=== PATIENT | male | born 1970 | race Caucasian/White ===

== ENCOUNTER 2016-07-07 14:37 | Inpatient (IN) | payer OTHER ==
[2016-07-07 17:02] VITALS: BMI 24.2
--- NOTE | 2016-07-07 19:13 | HP ---
COWS - Scale Resting Pulse: 1= [place] 81-100 Sweatin= Chills/Flushing Restless Observation: 0= Sits Still Pupil Size: 1= Pupils >than Normal Bone or Joint Aches: 1= Mild Discomfort Runny Nose/ Eye Tearin= Nasal Congestion GI Upset > 30mins: 1= Stomach Cramp Tremor Observation: 2= Slight Tremor Visible Yawning Observation: 1= 1-2x During Session Anxiety or Irritability: 2=Irritable/Anxious Goose Flesh Skin: 3=Piloerection COWS Score: 14 Admission ROS S - HPI Chief Complaint: WITHDRAWAL SX Allergies/Adverse Reactions: Allergies Allergy/AdvReac Type Severity Reaction Status Date / Time No Known Allergies Allergy Verified 07/07/16 17:24 History of Present Illness: 46 YEARS OLD MALE WITH LONG HISTORY OF HEROIN NICOTINE DEPENDENCE DENIES MEDICAL ISSUE DENIES MENTAL ILLNESS IS ADMITTED TO DETOX Exam Limitations: No Limitations - Ebola screening Have you traveled outside of the country in the last 21 days: No Have you had contact with anyone from an Ebola affected area: No Have you been sick,other than usual withdrawal symptoms: No Do you have a fever: No - Review of Systems Constitutional: Chills, Changes in sleep, Weight Stable EENT: reports: No Symptoms Reported Respiratory: reports: No Symptoms reported Cardiac: reports: No Symptoms Reported GI: reports: Nausea, Abdominal cramping : reports: No Symptoms Reported Musculoskeletal: reports: Back Pain Integumentary: reports: No Symptoms Reported Neuro: reports: Tremors Endocrine: reports: No Symptoms Reported Hematology: reports: No Symptoms Reported Psychiatric: reports: Judgement Intact, Orientated x3, Depressed (HISTORY OF DEPRESSION X 10 YEARS AGO) Other Systems: Reviewed and Negative Patient History - Patient Medical History Hx Anemia: No Hx Asthma: No Hx Chronic Obstructive Pulmonary Disease (COPD): No Hx Cancer: No Hx Cardiac Disorders: No Hx Congestive Heart Failure: No Hx Hypertension: No Hx Hypercholesterolemia: No Hx Pacemaker: No HX Cerebrovascular Accident: No Hx Seizures: No Hx Dementia: No Hx Diabetes: No Hx Gastrointestinal Disorders: No Hx Liver Disease: No Hx Genitourinary Disorders: No Hx Sexually Transmitted Disorders: No Hx Renal Disease (ESRD): No Hx Thyroid Disease: No Hx Human Immunodeficiency Virus (HIV): No Hx Hepatitis C: No Hx Depression: Yes (10 YEARS AGO) Hx Suicide Attempt: Yes (CUT WRISTS 10 YEARS AGO) Hx Bipolar Disorder: No Hx Schizophrenia: No - Patient Surgical History Past Surgical History: No Hx Neurologic Surgery: No Hx Cataract Extraction: No Hx Cardiac Surgery: No Hx Lung Surgery: No Hx Breast Surgery: No Hx Breast Biopsy: No Hx Abdominal Surgery: No Hx Appendectomy: No Hx Cholecystectomy: No Hx Genitourinary Surgery: No Hx Orthopedic Surgery: No - PPD History Previous Implant?: Yes Documented Results: Negative w/o proof Implanted On Prior [facility] Admission?: No PPD to be Administered?: Yes - Smoking Cessation Smoking history: Current every day smoker Have you smoked in the past 12 months: Yes Aproximately how many cigarettes per day: 10 Cigars Per Day: 0 Hx Chewing Tobacco Use: No Initiated information on smoking cessation: Yes 'Breaking Loose' booklet given: 07/07/16 - Substance & Tx. History Hx Alcohol Use: No Hx Substance Use: Yes Substance Use Type: Heroin Hx Substance Use Treatment: Yes - Substances Abused Heroin Route: Inhalation Frequency: Daily Amount used: 8 bags Age of first use: 26 Date of Last Use: 07/07/16 Family Disease History - Family Disease History Family History: Denies Admission Physical Exam S - Vital Signs Vital Signs: Vital Signs - 24 hr 07/07/16 17:01 Temperature 98.9 F Pulse Rate 84 Respiratory 18 Rate Blood Pressure 121/75 - Physical General Appearance: Yes: Appropriately Dressed, Mild Distress, Thin, Tremorous, Irritable, Sweating, Anxious HEENTM: Yes: Hearing grossly Normal, Normal ENT Inspection, Normocephalic, Normal Voice Respiratory: Yes: Chest Non-Tender, Lungs Clear, Normal Breath Sounds, No Respiratory Distress, No Accessory Muscle Use Neck: Yes: Supple, Trachea in good position Breast: Yes: Breasts Symetrical, Other Cardiology: Yes: Regular Rate, S1, S2 Abdominal: Yes: Non Tender, Soft Genitourinary: Yes: Within Normal Limits Back: Yes: Normal Inspection Musculoskeletal: Yes: full range of Motion, Gait Steady, Back pain Extremities: Yes: Normal Inspection (HEALED HORIZONTAL SCARS BOTH WRISTS), Normal Range of Motion, Non-Tender, Tremors Neurological: Yes: Fully Oriented, Alert, Motor Strength 5/5, Normal Mood/Affect , Normal Response, Other (PATIENT DOSE NOT WANT TO SEE A PSYCHIATRIST WHILE IN DETOX AT THIS TIME) Integumentary: Yes: Warm, Moist Lymphatic: Yes: Within Normal Limits - Diagnostic (1) Opioid dependence with withdrawal Current Visit: Yes Status: Acute (2) Nicotine dependence Current Visit: Yes Status: Acute Qualifiers: Nicotine product type: cigarettes Substance use status: in withdrawal Qualified Code(s): F17.213 - Nicotine dependence, cigarettes, with withdrawal (3) Chronic back pain Current Visit: Yes Status: Chronic Qualifiers: Back pain location: low back pain Back pain laterality: bilateral Sciatica presence: without sciatica Qualified Code(s): M54.5 - Low back pain; G89.29 - Other chronic pain (4) Abnormal weight Current Visit: Yes Status: Acute Comment: ENSURE Cleared for Admission [facility] - Detox or Rehab [facility] Level of Care: Medically Managed Detox Regimen/Protocol: Methadone [facility] Breath Alcohol Content Breath Alcohol Content: 0 Urine Drug Screen - Results Drug Screen Negative: No Urine Drug Screen Results: OPI-Opiates
[2016-07-07] MEDS ORDERED: LOPERAMIDE HCL 2 MG CAPSULE PO PRN (19:21)
[2016-07-07] MEDS ORDERED: ACETAMINOPHEN 325 MG TABLET (FP) PO PRN (19:21)
[2016-07-07] MEDS ORDERED: MAG HYDROX/AL HYDROX/SIMETH 30 ML UNIT-DOSE CUP PO PRN (19:21)
[2016-07-07] MEDS ORDERED: MENTHOL/PHENOL 1 EACH UD MM PRN (19:21)
[2016-07-07] MEDS ORDERED: MAGNESIUM HYDROX 2400MG/30ML ORAL SUSPENSION 30 ML CUP PO PRN (19:21)
[2016-07-07] MEDS ORDERED: IBUPROFEN 400 MG TABLET (FP) PO PRN (19:21)
[2016-07-07] MEDS ORDERED: P-EPHED 60MG/TRIPROLIDI 2.5MG TABLET PO PRN (19:21)
[2016-07-07] MEDS ORDERED: MAGNESIUM CITRATE 300 ML BOTTLE PO PRN (19:21)
[2016-07-07] MEDS ORDERED: guaiFENesin/D-METHORPHAN HB 10 ML UNIT-DOSE CUPS PO PRN (19:21)
[2016-07-07] MEDS ORDERED: METHADONE HCL 10 MG TABLET (FOR DETOX USE ONLY) PO ONE ×2 (19:21→23:00)
[2016-07-07] MEDS ORDERED: NICOTINE POLACRILEX 2 MG GUM BC PRN (19:21)
[2016-07-07] MEDS: diazePAM 5 MG TABLET PO PRN (20:03)
[2016-07-07] MEDS: diphenhydrAMINE HCL 50 MG CAPSULE PO PRN (22:41)
[2016-07-07] MEDS: THIAMINE HCL 100 MG TABLET (FP) PO SCH (22:41)
[2016-07-07 23:16] LABS: URINE APPEARANCE CLOUDY; URINE BILIRUBIN NEGATIVE (NEGATIVE); URINE BLOOD NEGATIVE (NEGATIVE); URINE COLOR YELLOW; URINE GLUCOSE (UA) NEGATIVE (NEGATIVE); URINE KETONE NEGATIVE (NEGATIVE); URINE LEUK ESTERASE NEGATIVE (NEGATIVE); URINE NITRITE NEGATIVE (NEGATIVE); URINE PROTEIN NEGATIVE (NEGATIVE); URINE UROBILINOGEN NEGATIVE E.U./dl (0.2-1.0)
[2016-07-08] MEDS ORDERED: METHADONE HCL 10 MG TABLET (FOR DETOX USE ONLY) PO ONE (10:00)
[2016-07-08 10:23] LABS: ALBUMIN 3.2 g/dl (3.4-5.0); ANION GAP 9 (8-16); CO2 30 mmol/L (21-32); GLUCOSE,RANDOM 86 mg/dL (74-106); SGOT/AST 11 U/L (15-37); SGPT/ALT 20 U/L (12-78)
[2016-07-08 10:25] LABS: ALK PHOS 84 U/L (45-117); BILIRUBIN,TOTAL 0.5 mg/dL (0.2-1.0); CREATININE 0.9 mg/dL (0.7-1.3); TOT PROT 6.3 g/dl (6.4-8.2)
[2016-07-08 10:27] LABS: MCH 31.9 pg (25.7-33.7); MCHC 33.2 g/dl (32.0-35.9); MEAN CELL VOLUME 96.1 fl (80-96); MEAN PLT VOLUME 7.9 fl (7.5-11.1); PLATELET COUNT 228 K/MM3 (134-434); RDW 13.5 % (11.9-15.9); WHITE BLOOD COUNT 8.1 K/mm3 (4.0-10.0)
[2016-07-08] MEDS: PRENATAL VITAMINS W/ FOLIC ACID TABLET (FP) PO SCH (10:39)
[2016-07-08] MEDS: diazePAM 5 MG TABLET PO PRN (10:40)
[2016-07-08] MEDS: NICOTINE 14 MG/24 HOURS TOPICAL PATCH TD SCH (10:40)
--- NOTE | 2016-07-08 12:58 | PN ---
S COWS - Scale Resting Pulse: 1= [place] 81-100 Sweatin=Flushed/Facial Moisture Restless Observation: 1= Difficult to Sit Still Pupil Size: 0= Normal to Room Light Bone or Joint Aches: 2= Severe Diffuse Aches Runny Nose/ Eye Tearin= Runny Nose/Eyes GI Upset > 30mins: 1= Stomach Cramp Tremor Observation of Outstretched Hands: 2= Slight Tremor Visible Yawning Observation: 2= >3x During Session Anxiety or Irritability: 2=Irritable/Anxious Goose Flesh Skin: 3=Piloerection COWS Score: 18 S Progress Note (SOAP) Subjective: agitation anxiety sweats shakes interrupted sleep Objective: 07/08/16 12:57 Vital Signs Temperature 101.5 F H 07/08/16 10:29 Pulse Rate 84 07/08/16 10:29 Respiratory Rate 20 07/08/16 10:29 Blood Pressure 130/87 07/08/16 10:29 O2 Sat by Pulse Oximetry (%) Laboratory Tests 07/07/16 07/08/16 07/08/16 23:00 07:00 07:00 WBC 8.1 RBC 4.46 Hgb 14.2 Hct 42.9 MCV 96.1 H MCHC 33.2 RDW 13.5 Plt Count 228 MPV 7.9 Sodium 143 Potassium 4.0 Chloride 104 Carbon Dioxide 30 Anion Gap 9 BUN 14 Creatinine 0.9 Creat Clearance w eGFR > 60 Random Glucose 86 Calcium 9.0 Total Bilirubin 0.5 AST 11 L ALT 20 Alkaline Phosphatase 84 Total Protein 6.3 L Albumin 3.2 L Urine Color Yellow Urine Appearance Cloudy Urine pH 8.0 Ur Specific [place] 1.019 Urine Protein Negative Urine Glucose (UA) Negative Urine Ketones Negative Urine Blood Negative Urine Nitrite Negative Urine Bilirubin Negative Urine Urobilinogen Negative Ur Leukocyte Esterase Negative awake/alert ambulating no acute distress Assessment: 07/08/16 12:58 withdrawal sx Plan: continue detox increase fluids
--- NOTE | 2016-07-08 17:44 | EKG ---
Test Reason : Blood Pressure : / mmHG Vent. Rate : 084 BPM Atrial Rate : 084 BPM P-R Int : 140 ms QRS Dur : 094 ms QT Int : 348 ms P-R-T Axes : 075 073 044 degrees QTc Int : 411 ms NORMAL SINUS RHYTHM POSSIBLE LEFT ATRIAL ENLARGEMENT BORDERLINE ECG NO PREVIOUS ECGS AVAILABLE Confirmed by DOMINIC BREWSTER, CACHORRO ([id number]) on 07/08/2016 5:43:31 PM Referred By: John Chadwick Confirmed By:CACHORRO ALFARO MD
[2016-07-08] MEDS: THIAMINE HCL 100 MG TABLET (FP) PO SCH (22:28)
[2016-07-08] MEDS: diphenhydrAMINE HCL 50 MG CAPSULE PO PRN (22:28)
[2016-07-09] MEDS: diazePAM 5 MG TABLET PO PRN ×2 (07:52→17:23)
[2016-07-09] MEDS ORDERED: METHADONE HCL 5 MG TABLET (FOR DETOX USE ONLY) PO ONE (10:00)
[2016-07-09] MEDS: NICOTINE 14 MG/24 HOURS TOPICAL PATCH TD SCH (10:25)
[2016-07-09] MEDS: PRENATAL VITAMINS W/ FOLIC ACID TABLET (FP) PO SCH (10:26)
--- NOTE | 2016-07-09 12:57 | PN ---
S COWS - Scale Resting Pulse: 0= [place] 80 or Below Sweatin= Chills/Flushing Restless Observation: 3= Extraneous Movement Pupil Size: 1= Pupils >than Normal Bone or Joint Aches: 2= Severe Diffuse Aches Runny Nose/ Eye Tearin= Runny Nose/Eyes GI Upset > 30mins: 2= Nausea/Diarrhea Tremor Observation of Outstretched Hands: 2= Slight Tremor Visible Yawning Observation: 1= 1-2x During Session Anxiety or Irritability: 2=Irritable/Anxious Goose Flesh Skin: 0=Smooth Skin COWS Score: 16 S Progress Note (SOAP) Subjective: ALERT,IRRITABLE,ANXIOUS,INTERRUPTED SLEEP,PAIN IN THE BODY AND ABCK,TREMOR Objective: 07/09/16 12:55 Vital Signs Temperature 98.2 F 07/09/16 10:03 Pulse Rate 97 H 07/09/16 10:03 Respiratory Rate 20 07/09/16 10:03 Blood Pressure 146/86 07/09/16 10:03 O2 Sat by Pulse Oximetry (%) Laboratory Last Values WBC 8.1 K/mm3 (4.0-10.0) 07/08/16 07:00 RBC 4.46 M/mm3 (4.00-5.60) 07/08/16 07:00 Hgb 14.2 GM/dL (11.7-16.9) 07/08/16 07:00 Hct 42.9 % (35.4-49) 07/08/16 07:00 MCV 96.1 fl (80-96) H 07/08/16 07:00 MCHC 33.2 g/dl (32.0-35.9) 07/08/16 07:00 RDW 13.5 % (11.9-15.9) 07/08/16 07:00 Plt Count 228 K/MM3 (134-434) 07/08/16 07:00 MPV 7.9 fl (7.5-11.1) 07/08/16 07:00 Sodium 143 mmol/L (136-145) 07/08/16 07:00 Potassium 4.0 mmol/L (3.5-5.1) 07/08/16 07:00 Chloride 104 mmol/L (98-107) 07/08/16 07:00 Carbon Dioxide 30 mmol/L (21-32) 07/08/16 07:00 Anion Gap 9 (8-16) 07/08/16 07:00 BUN 14 mg/dL (7-18) 07/08/16 07:00 Creatinine 0.9 mg/dL (0.7-1.3) 07/08/16 07:00 Creat Clearance w eGFR > 60 (>60) 07/08/16 07:00 Random Glucose 86 mg/dL (74-106) 07/08/16 07:00 Calcium 9.0 mg/dL (8.5-10.1) 07/08/16 07:00 Total Bilirubin 0.5 mg/dL (0.2-1.0) 07/08/16 07:00 AST 11 U/L (15-37) L 07/08/16 07:00 ALT 20 U/L (12-78) 07/08/16 07:00 Alkaline Phosphatase 84 U/L (45-117) 07/08/16 07:00 Total Protein 6.3 g/dl (6.4-8.2) L 07/08/16 07:00 Albumin 3.2 g/dl (3.4-5.0) L 07/08/16 07:00 Urine Color Yellow 07/07/16 23:00 Urine Appearance Cloudy 07/07/16 23:00 Urine pH 8.0 (5.0-8.0) 07/07/16 23:00 Ur Specific [place] 1.019 (1.001-1.035) 07/07/16 23:00 Urine Protein Negative (NEGATIVE) 07/07/16 23:00 Urine Glucose (UA) Negative (NEGATIVE) 07/07/16 23:00 Urine Ketones Negative (NEGATIVE) 07/07/16 23:00 Urine Blood Negative (NEGATIVE) 07/07/16 23:00 Urine Nitrite Negative (NEGATIVE) 07/07/16 23:00 Urine Bilirubin Negative (NEGATIVE) 07/07/16 23:00 Urine Urobilinogen Negative E.U./dl (0.2-1.0) 07/07/16 23:00 Ur Leukocyte Esterase Negative (NEGATIVE) 07/07/16 23:00 RPR Titer Nonreactive (NONREACTIVE) 07/08/16 07:00 Assessment: 07/09/16 12:56 WITHDRAWAL SYMPTOM Plan: CONTINUE DETOX
[2016-07-09] MEDS: THIAMINE HCL 100 MG TABLET (FP) PO SCH (22:57)
[2016-07-10] MEDS ORDERED: METHADONE HCL 5 MG TABLET (FOR DETOX USE ONLY) PO ONE (10:00)
[2016-07-10] MEDS: PRENATAL VITAMINS W/ FOLIC ACID TABLET (FP) PO SCH (10:30)
[2016-07-10] MEDS: NICOTINE 14 MG/24 HOURS TOPICAL PATCH TD SCH (10:31)
--- NOTE | 2016-07-10 13:26 | PN ---
BHS Progress Note (SOAP) Subjective: sweats agitation irritable Objective: 07/10/16 13:25 Vital Signs Temperature 98.4 F 07/10/16 10:13 Pulse Rate 98 H 07/10/16 10:13 Respiratory Rate 20 07/10/16 10:13 Blood Pressure 154/90 07/10/16 10:13 O2 Sat by Pulse Oximetry (%) awake/alert ambulating no acute distress Assessment: 07/10/16 13:25 withdrawal sx Plan: continue detox increase fluids
[2016-07-10 14:14] LABS: HIV 1 & 2 AB NEGATIVE; HIV 1 AGp24 NEGATIVE
[2016-07-10 14:55] VITALS: BP 139/74; PULSE 103; TEMP 99
--- NOTE | 2016-07-10 16:11 | PN ---
S Progress Note Note: PATIENT DID NOT WANT TO COMPLETE TREATMENT,SIGNED RELEASE AMA,SEEN BY COUNSELOR, DO NOT WANT TO WAIT
[2016-07-11] MEDS ORDERED: METHADONE HCL 10 MG TABLET (FOR DETOX USE ONLY) PO ONE (10:00)
[2016-07-12] MEDS ORDERED: METHADONE HCL 5 MG TABLET (FOR DETOX USE ONLY) PO ONE (06:00)
--- NOTE | 2016-07-26 11:51 | DS ---
[facility] Detox Discharge Summary Admission Date: 07/07/16 Discharge Date: 07/10/16 - History Present History: Opioid Dependence Pertinent Past History: back pain by hx. - Physical Exam Results Vital Signs: Vital Signs Temperature 99.0 F 07/10/16 14:54 Pulse Rate 103 H 07/10/16 14:54 Respiratory Rate 18 07/10/16 14:54 Blood Pressure 139/74 07/10/16 14:54 O2 Sat by Pulse Oximetry (%) Pertinent Admission Physical Exam Findings: Withdrawal sx. Laboratory Last Values WBC 8.1 K/mm3 (4.0-10.0) 07/08/16 07:00 RBC 4.46 M/mm3 (4.00-5.60) 07/08/16 07:00 Hgb 14.2 GM/dL (11.7-16.9) 07/08/16 07:00 Hct 42.9 % (35.4-49) 07/08/16 07:00 MCV 96.1 fl (80-96) H 07/08/16 07:00 MCHC 33.2 g/dl (32.0-35.9) 07/08/16 07:00 RDW 13.5 % (11.9-15.9) 07/08/16 07:00 Plt Count 228 K/MM3 (134-434) 07/08/16 07:00 MPV 7.9 fl (7.5-11.1) 07/08/16 07:00 Sodium 143 mmol/L (136-145) 07/08/16 07:00 Potassium 4.0 mmol/L (3.5-5.1) 07/08/16 07:00 Chloride 104 mmol/L (98-107) 07/08/16 07:00 Carbon Dioxide 30 mmol/L (21-32) 07/08/16 07:00 Anion Gap 9 (8-16) 07/08/16 07:00 BUN 14 mg/dL (7-18) 07/08/16 07:00 Creatinine 0.9 mg/dL (0.7-1.3) 07/08/16 07:00 Creat Clearance w eGFR > 60 (>60) 07/08/16 07:00 Random Glucose 86 mg/dL (74-106) 07/08/16 07:00 Calcium 9.0 mg/dL (8.5-10.1) 07/08/16 07:00 Total Bilirubin 0.5 mg/dL (0.2-1.0) 07/08/16 07:00 AST 11 U/L (15-37) L 07/08/16 07:00 ALT 20 U/L (12-78) 07/08/16 07:00 Alkaline Phosphatase 84 U/L (45-117) 07/08/16 07:00 Total Protein 6.3 g/dl (6.4-8.2) L 07/08/16 07:00 Albumin 3.2 g/dl (3.4-5.0) L 07/08/16 07:00 Urine Color Yellow 07/07/16 23:00 Urine Appearance Cloudy 07/07/16 23:00 Urine pH 8.0 (5.0-8.0) 07/07/16 23:00 Ur Specific [place] 1.019 (1.001-1.035) 07/07/16 23:00 Urine Protein Negative (NEGATIVE) 07/07/16 23:00 Urine Glucose (UA) Negative (NEGATIVE) 07/07/16 23:00 Urine Ketones Negative (NEGATIVE) 07/07/16 23:00 Urine Blood Negative (NEGATIVE) 07/07/16 23:00 Urine Nitrite Negative (NEGATIVE) 07/07/16 23:00 Urine Bilirubin Negative (NEGATIVE) 07/07/16 23:00 Urine Urobilinogen Negative E.U./dl (0.2-1.0) 07/07/16 23:00 Ur Leukocyte Esterase Negative (NEGATIVE) 07/07/16 23:00 RPR Titer Nonreactive (NONREACTIVE) 07/08/16 07:00 HIV 1&2 Antibody Screen Negative 07/08/16 11:30 HIV P24 Antigen Negative 07/08/16 11:30 labs noted - Medication Discharge Medications: Ambulatory Orders NK [No Known Home Medication] 07/07/16 - Diagnosis (1) Nicotine dependence Status: Acute Qualifiers: Nicotine product type: cigarettes Substance use status: in withdrawal Qualified Code(s): F17.213 - Nicotine dependence, cigarettes, with withdrawal (2) Opioid dependence with withdrawal Status: Acute (3) Chronic back pain Status: Chronic Qualifiers: Back pain location: low back pain Back pain laterality: bilateral Sciatica presence: without sciatica Qualified Code(s): M54.5 - Low back pain; G89.29 - Other chronic pain - AMA Did Patient Leave Against Medical Advice: Yes
== END 2016-07-10 16:15 | disposition left against medical advice (07) | DRG 770 ==
LOC: YASAS 14:37 → Y6N 19:03
PROVIDERS: ADMIT Internal Medicine; ATTEND Internal Medicine
PROC: HZ2ZZZZ Detoxification Services for Substance Abuse Treatment (ICD-10-PCS; principal; 2016-07-10)
DX: F11.23 Opioid dependence with withdrawal (principal); F17.213 Nicotine dependence, cigarettes, with withdrawal; M54.5 Low back pain; G89.29 Other chronic pain; R63.4 Abnormal weight loss; Z68.24 Body mass index [BMI] 24.0-24.9, adult
CPT/HCPCS: 36415; 80053; 81003; 85027; 86593; 87389; 93005; 93010

== ENCOUNTER 2016-12-09 09:07 | Inpatient (IN) | payer OTHER ==
[2016-12-09 10:43] VITALS: BMI 25.7
--- NOTE | 2016-12-09 11:09 | HP ---
COWS - Scale Resting Pulse: 0= [place] 80 or Below Sweatin=Flushed/Facial Moisture Restless Observation: 1= Difficult to Sit Still Pupil Size: 0= Normal to Room Light Bone or Joint Aches: 2= Severe Diffuse Aches Runny Nose/ Eye Tearin= Nasal Congestion GI Upset > 30mins: 1= Stomach Cramp Tremor Observation: 2= Slight Tremor Visible Yawning Observation: 2= >3x During Session Anxiety or Irritability: 2=Irritable/Anxious Goose Flesh Skin: 0=Smooth Skin COWS Score: 13 Admission ROS S - HPI Chief Complaint: "I need to stop using." Patient is here to Detox from Heroin. Allergies/Adverse Reactions: Allergies Allergy/AdvReac Type Severity Reaction Status Date / Time No Known Allergies Allergy Verified 12/09/16 11:06 History of Present Illness: Patient is here to detox from Heroin. Patient has had 1 previous Detox admission to [facility] (07/2016). Patient also reports daily Cocaine use. Exam Limitations: No Limitations - Ebola screening Have you traveled outside of the country in the last 21 days: No Have you had contact with anyone from an Ebola affected area: No Have you been sick,other than usual withdrawal symptoms: No Do you have a fever: No - Review of Systems Constitutional: Chills, Diaphoresis, Fever, Loss of Appetite, Malaise, Night Sweats, Changes in sleep, Unintentional Wgt. Loss (Lost approx. 10 lbs. over last 1 month.) EENT: reports: Dental Problems (1 Broken tooth on upper Right side of mouth, needs to have it pulled.) Respiratory: reports: Productive cough Cardiac: reports: Palpitations GI: reports: Poor Appetite : reports: No Symptoms Reported Musculoskeletal: reports: Back Pain, Joint Pain, Neck Pain, Joint Stiffness Integumentary: reports: No Symptoms Reported Neuro: reports: Headache, Numbness (Fingertips of Bilateral hands and toes of Bilateral feet.), Tingling (Fingertips of Bilateral hands and toes of Bilateral feet.), Tremors Endocrine: reports: No Symptoms Reported Hematology: reports: No Symptoms Reported Psychiatric: reports: Judgement Intact, Mood/Affect Appropiate, Anxious, Disorientated (To Current Day / Date.) Other Systems: Reviewed and Negative Patient History - Patient Medical History Hx Anemia: No Hx Asthma: No Hx Chronic Obstructive Pulmonary Disease (COPD): No Hx Cancer: No Hx Cardiac Disorders: No Hx Congestive Heart Failure: No Hx Hypertension: No Hx Hypercholesterolemia: No Hx Pacemaker: No HX Cerebrovascular Accident: No Hx Seizures: No Hx Dementia: No Hx Diabetes: No Hx Gastrointestinal Disorders: No Hx Liver Disease: No Hx Genitourinary Disorders: No Hx Sexually Transmitted Disorders: No Hx Renal Disease (ESRD): No Hx Thyroid Disease: No Hx Human Immunodeficiency Virus (HIV): No (Last tested: approx. 6 months ago: NEGATIVE.) Hx Hepatitis C: No (Last tested: approx. 1 year ago: NEGATIVE.) Hx Depression: Yes (10 YEARS AGO; PATIENT DENIES CURRENT DEPRESSION.) Hx Suicide Attempt: Yes (CUT WRISTS 7 YEARS AGO; PATIENT DENIES CURRENT SI / HI. ) Hx Bipolar Disorder: No Hx Schizophrenia: No Other Medical History: 4 herniated discs in Lower Back area (X approx. 6 years, work-related). - Patient Surgical History Past Surgical History: No Hx Neurologic Surgery: No Hx Cataract Extraction: No Hx Cardiac Surgery: No Hx Lung Surgery: No Hx Breast Surgery: No Hx Breast Biopsy: No Hx Abdominal Surgery: No Hx Appendectomy: No Hx Cholecystectomy: No Hx Genitourinary Surgery: No Hx Section: No Hx Orthopedic Surgery: No Anesthesia Reaction: No - PPD History Previous Implant?: Yes Documented Results: Negative w/proof Implanted On Prior [facility] Admission?: Yes Date: 07/09/16 PPD to be Administered?: No - Reproductive History Patient is a Female of Child Bearing Age (11 -55 yrs old): No (PATIENT IS MALE.) - Smoking Cessation Smoking history: Current every day smoker Have you smoked in the past 12 months: Yes Aproximately how many cigarettes per day: 10 Cigars Per Day: 0 Hx Chewing Tobacco Use: No Initiated information on smoking cessation: Yes 'Breaking Loose' booklet given: 12/09/16 (GIVEN ON UNIT.) - Substance & Tx. History Hx Alcohol Use: No Hx Substance Use: Yes Substance Use Type: Cocaine, Heroin Hx Substance Use Treatment: Yes (1 Previous Detox admission at [facility].) - Substances Abused Heroin Route: Inhalation Frequency: Daily Amount used: 6-7 BAGS. Age of first use: 26 Date of Last Use: 12/09/16 Cocaine Route: Smoking Frequency: Daily Amount used: 4 BAGS. Age of first use: 46 Date of Last Use: 12/09/16 Family Disease History - Family Disease History Family Disease History: Heart Disease: Mother Admission Physical Exam [facility] - Vital Signs Vital Signs: Vital Signs - 24 hr 12/09/16 10:34 Temperature 97.2 F L Pulse Rate 75 Respiratory 16 Rate Blood Pressure 114/69 - Physical General Appearance: Yes: No Apparent Distress, Nourished, Appropriately Dressed , Tremorous, Anxious HEENTM: Yes: Hearing grossly Normal, Normocephalic, Normal Voice, AUDIE, Pharynx Normal Respiratory: Yes: Chest Non-Tender, Lungs Clear, No Respiratory Distress Neck: Yes: No masses,lesions,Nodules, Supple, Trachea in good position Breast: Yes: Breast Exam Deferred Cardiology: Yes: Regular Rhythm, Regular Rate, S1, S2 Abdominal: Yes: Normal Bowel Sounds, Non Tender, Flat, Soft Genitourinary: Yes: Within Normal Limits Back: Yes: Decreased Range of Motion, Vertebral Tenderness Musculoskeletal: Yes: Gait Steady, Back pain, Joint Stiffness, Muscle Pain Extremities: Yes: Tremors Neurological: Yes: Alert, Normal Mood/Affect, Normal Response, Disoriented (To Current Day / Date.) Integumentary: Yes: Normal Color, Dry, Warm Lymphatic: Yes: Within Normal Limits - Diagnostic (1) Nicotine dependence Current Visit: Yes Status: Chronic Qualifiers: Nicotine product type: cigarettes Substance use status: uncomplicated Qualified Code(s): F17.210 - Nicotine dependence, cigarettes, uncomplicated (2) Opioid dependence with withdrawal Current Visit: Yes Status: Acute (3) Displacement of lumbar disc with radiculopathy Current Visit: Yes Status: Chronic (4) Cocaine dependence, uncomplicated Current Visit: Yes Status: Acute Cleared for Admission [facility] - Detox or Rehab [facility] Level of Care: Medically Managed Detox Regimen/Protocol: Methadone [facility] Breath Alcohol Content Breath Alcohol Content: 0 Urine Drug Screen - Results Urine Drug Screen Results: DREW-Cocaine, OPI-Opiates
[2016-12-09] MEDS ORDERED: MAGNESIUM CITRATE 300 ML BOTTLE PO PRN (11:37)
[2016-12-09] MEDS ORDERED: IBUPROFEN 400 MG TABLET (FP) PO PRN (11:37)
[2016-12-09] MEDS ORDERED: ACETAMINOPHEN 325 MG TABLET (FP) PO PRN (11:37)
[2016-12-09] MEDS ORDERED: hydrOXYzine PAMOATE 50 MG CAPSULE (FP) PO PRN (11:37)
[2016-12-09] MEDS ORDERED: MAG HYDROX/AL HYDROX/SIMETH 30 ML UNIT-DOSE CUP PO PRN (11:37)
[2016-12-09] MEDS ORDERED: LOPERAMIDE HCL 2 MG CAPSULE PO PRN (11:37)
[2016-12-09] MEDS ORDERED: P-EPHED 60MG/TRIPROLIDI 2.5MG TABLET PO PRN (11:37)
[2016-12-09] MEDS ORDERED: MENTHOL/PHENOL 1 EACH UD MM PRN (11:37)
[2016-12-09] MEDS ORDERED: guaiFENesin/D-METHORPHAN HB 10 ML UNIT-DOSE CUPS PO PRN (11:37)
[2016-12-09] MEDS ORDERED: MAGNESIUM HYDROX 2400MG/30ML ORAL SUSPENSION 30 ML CUP PO PRN (11:37)
[2016-12-09] MEDS ORDERED: METHADONE HCL 10 MG TABLET (FOR DETOX USE ONLY) PO ONE ×2 (12:52→23:00)
[2016-12-09] MEDS: NICOTINE 14 MG/24 HOURS TOPICAL PATCH TD SCH (14:54)
[2016-12-09] MEDS: diazePAM 5 MG TABLET PO PRN (14:54)
[2016-12-09] MEDS: LIDOCAINE 5% TOPICAL PATCH TP SCH (14:58)
[2016-12-09 16:10] LABS: MCH 31.9 pg (25.7-33.7); MCHC 33.7 g/dl (32.0-35.9); MEAN CELL VOLUME 94.6 fl (80-96); MEAN PLT VOLUME 8.4 fl (7.5-11.1); PLATELET COUNT 246 K/MM3 (134-434); RDW 14.5 % (11.9-15.9); WHITE BLOOD COUNT 6.2 K/mm3 (4.0-10.0)
[2016-12-09 16:52] LABS: ALBUMIN 4.2 g/dl (3.4-5.0); ANION GAP 9 (8-16); CALCIUM 9.4 mg/dL (8.5-10.1); CO2 31 mmol/L (21-32); CREATININE 1.2 mg/dL (0.7-1.3); GLUCOSE,RANDOM 85 mg/dL (74-106); SGOT/AST 27 U/L (15-37); SGPT/ALT 28 U/L (12-78); TOT PROT 7.4 g/dl (6.4-8.2)
[2016-12-09 16:54] LABS: ALK PHOS 84 U/L (45-117); BILIRUBIN,TOTAL 1.7 mg/dL (0.2-1.0)
--- NOTE | 2016-12-09 17:14 | EKG ---
Test Reason : Blood Pressure : / mmHG Vent. Rate : 064 BPM Atrial Rate : 064 BPM P-R Int : 138 ms QRS Dur : 098 ms QT Int : 398 ms P-R-T Axes : 069 070 042 degrees QTc Int : 410 ms NORMAL SINUS RHYTHM VOLTAGE CRITERIA FOR LEFT VENTRICULAR HYPERTROPHY ABNORMAL ECG WHEN COMPARED WITH ECG OF 07-JUL-2016 19:49, NO SIGNIFICANT CHANGE WAS FOUND Confirmed by ISIAH CARR MD ([id number]) on 12/09/2016 5:13:49 PM Referred By: Confirmed By:ISIAH CARR MD
[2016-12-09 20:10] LABS: SICKLE CELL SCREEN NEGATIVE (NEGATIVE)
[2016-12-09] MEDS: THIAMINE HCL 100 MG TABLET (FP) PO SCH (22:08)
[2016-12-09] MEDS: diphenhydrAMINE HCL 50 MG CAPSULE PO PRN (22:09)
[2016-12-09] MEDS: LIDOCAINE PATCH REMOVAL MC SCH (22:09)
[2016-12-09 22:59] LABS: URINE APPEARANCE TURBID; URINE BILIRUBIN NEGATIVE (NEGATIVE); URINE BLOOD NEGATIVE (NEGATIVE); URINE COLOR YELLOW; URINE GLUCOSE (UA) NEGATIVE (NEGATIVE); URINE KETONE TRACE (NEGATIVE); URINE LEUK ESTERASE NEGATIVE (NEGATIVE); URINE NITRITE NEGATIVE (NEGATIVE); URINE PROTEIN NEGATIVE (NEGATIVE); URINE UROBILINOGEN NEGATIVE E.U./dl (0.2-1.0)
[2016-12-09 23:18] LABS: HIV 1 & 2 AB NEGATIVE; HIV 1 AGp24 NEGATIVE
[2016-12-10] MEDS ORDERED: METHADONE HCL 10 MG TABLET (FOR DETOX USE ONLY) PO ONE (10:00)
[2016-12-10] MEDS: PRENATAL VITAMINS W/ FOLIC ACID TABLET (FP) PO SCH (10:13)
[2016-12-10] MEDS: diazePAM 5 MG TABLET PO PRN ×2 (10:14→22:02)
[2016-12-10] MEDS: LIDOCAINE 5% TOPICAL PATCH TP SCH (10:28)
[2016-12-10] MEDS: NICOTINE 14 MG/24 HOURS TOPICAL PATCH TD SCH (10:28)
--- NOTE | 2016-12-10 10:38 | PN ---
BHS COWS - Scale Resting Pulse: 0= [place] 80 or Below Sweatin= Chills/Flushing Restless Observation: 1= Difficult to Sit Still Pupil Size: 0= Normal to Room Light Bone or Joint Aches: 1= Mild Discomfort Runny Nose/ Eye Tearin= Nasal Congestion GI Upset > 30mins: 1= Stomach Cramp Tremor Observation of Outstretched Hands: 2= Slight Tremor Visible Yawning Observation: 1= 1-2x During Session Anxiety or Irritability: 2=Irritable/Anxious Goose Flesh Skin: 3=Piloerection COWS Score: 13 BHS Progress Note (SOAP) Subjective: Tremors, Stomach Cramping. Objective: PT. A & O X 3, OBSERVED AMBULATING ON UNIT. NO ACUTE DISTRESS. 12/10/16 10:39 Vital Signs Temperature 98.2 F 12/10/16 09:03 Pulse Rate 76 12/10/16 09:03 Respiratory Rate 18 12/10/16 09:03 Blood Pressure 112/70 12/10/16 09:03 O2 Sat by Pulse Oximetry (%) Laboratory Tests 12/09/16 12/09/16 12/09/16 11:50 12:35 13:20 WBC RBC Hgb Hct MCV MCH MCHC RDW Plt Count MPV Sickle Cell Screen Sodium 140 Potassium 3.7 Chloride 100 Carbon Dioxide 31 Anion Gap 9 BUN 16 Creatinine 1.2 D Creat Clearance w eGFR > 60 Random Glucose 85 Calcium 9.4 Total Bilirubin 1.7 H D AST 27 D ALT 28 D Alkaline Phosphatase 84 Total Protein 7.4 Albumin 4.2 D Urine Color Urine Appearance Urine pH Urine Protein Urine Glucose (UA) Urine Ketones Urine Blood Urine Nitrite Urine Bilirubin Urine Urobilinogen Ur Leukocyte Esterase RPR Titer Hepatitis C Antibody <0.1 HIV 1&2 Antibody Screen Negative HIV P24 Antigen Negative 12/09/16 12/09/16 12/09/16 13:20 13:20 16:51 WBC 6.2 RBC 4.45 Hgb 14.2 Hct 42.1 MCV 94.6 MCH 31.9 MCHC 33.7 RDW 14.5 Plt Count 246 MPV 8.4 Sickle Cell Screen Negative Sodium Potassium Chloride Carbon Dioxide Anion Gap BUN Creatinine Creat Clearance w eGFR Random Glucose Calcium Total Bilirubin AST ALT Alkaline Phosphatase Total Protein Albumin Urine Color Yellow Urine Appearance Turbid Urine pH 5.0 D Urine Protein Negative Urine Glucose (UA) Negative Urine Ketones Trace H Urine Blood Negative Urine Nitrite Negative Urine Bilirubin Negative Urine Urobilinogen Negative Ur Leukocyte Esterase Negative RPR Titer Nonreactive Hepatitis C Antibody HIV 1&2 Antibody Screen HIV P24 Antigen LABS NOTED. Assessment: 12/10/16 10:40 WITHDRAWAL SYMPTOMS. Plan: CONTINUE DETOX. INCREASE PO FLUID INTAKE.
[2016-12-10] MEDS: NICOTINE POLACRILEX 2 MG GUM BUC PRN ×3 (12:43→21:06)
[2016-12-10] MEDS: diphenhydrAMINE HCL 50 MG CAPSULE PO PRN (22:02)
[2016-12-10] MEDS: THIAMINE HCL 100 MG TABLET (FP) PO SCH (22:02)
[2016-12-10] MEDS: LIDOCAINE PATCH REMOVAL MC SCH (22:04)
[2016-12-11] MEDS ORDERED: METHADONE HCL 5 MG TABLET (FOR DETOX USE ONLY) PO ONE (10:00)
[2016-12-11] MEDS: PRENATAL VITAMINS W/ FOLIC ACID TABLET (FP) PO SCH (10:17)
[2016-12-11] MEDS: diazePAM 5 MG TABLET PO PRN ×2 (10:17→22:03)
[2016-12-11] MEDS: NICOTINE 14 MG/24 HOURS TOPICAL PATCH TD SCH (10:19)
[2016-12-11] MEDS: LIDOCAINE 5% TOPICAL PATCH TP SCH (10:50)
[2016-12-11] MEDS: NICOTINE POLACRILEX 2 MG GUM BUC PRN (11:04)
--- NOTE | 2016-12-11 11:35 | PN ---
BHS COWS - Scale Resting Pulse: 1= DE 81-100 Sweatin=Flushed/Facial Moisture Restless Observation: 1= Difficult to Sit Still Pupil Size: 0= Normal to Room Light Bone or Joint Aches: 1= Mild Discomfort Runny Nose/ Eye Tearin= Runny Nose/Eyes GI Upset > 30mins: 1= Stomach Cramp Tremor Observation of Outstretched Hands: 2= Slight Tremor Visible Yawning Observation: 1= 1-2x During Session Anxiety or Irritability: 2=Irritable/Anxious Goose Flesh Skin: 0=Smooth Skin COWS Score: 13 BHS Progress Note (SOAP) Subjective: Sweating, Tremors. Objective: PT. A & O X 3, OBSERVED AMBULATING ON UNIT. NO ACUTE DISTRESS. 12/11/16 11:32 Vital Signs Temperature 97.4 F L 12/11/16 09:42 Pulse Rate 86 12/11/16 09:42 Respiratory Rate 18 12/11/16 09:42 Blood Pressure 125/84 12/11/16 09:42 O2 Sat by Pulse Oximetry (%) Laboratory Tests 12/09/16 12/09/16 12/09/16 11:50 12:35 13:20 WBC RBC Hgb Hct MCV MCH MCHC RDW Plt Count MPV Sickle Cell Screen Sodium 140 Potassium 3.7 Chloride 100 Carbon Dioxide 31 Anion Gap 9 BUN 16 Creatinine 1.2 D Creat Clearance w eGFR > 60 Random Glucose 85 Calcium 9.4 Total Bilirubin 1.7 H D AST 27 D ALT 28 D Alkaline Phosphatase 84 Total Protein 7.4 Albumin 4.2 D Urine Color Urine Appearance Urine pH Ur Specific [place] Urine Protein Urine Glucose (UA) Urine Ketones Urine Blood Urine Nitrite Urine Bilirubin Urine Urobilinogen Ur Leukocyte Esterase RPR Titer Hepatitis C Antibody <0.1 HIV 1&2 Antibody Screen Negative HIV P24 Antigen Negative 12/09/16 12/09/16 12/09/16 13:20 13:20 16:51 WBC 6.2 RBC 4.45 Hgb 14.2 Hct 42.1 MCV 94.6 MCH 31.9 MCHC 33.7 RDW 14.5 Plt Count 246 MPV 8.4 Sickle Cell Screen Negative Sodium Potassium Chloride Carbon Dioxide Anion Gap BUN Creatinine Creat Clearance w eGFR Random Glucose Calcium Total Bilirubin AST ALT Alkaline Phosphatase Total Protein Albumin Urine Color Yellow Urine Appearance Turbid Urine pH 5.0 D Ur Specific [place] >= 1.030 H Urine Protein Negative Urine Glucose (UA) Negative Urine Ketones Trace H Urine Blood Negative Urine Nitrite Negative Urine Bilirubin Negative Urine Urobilinogen Negative Ur Leukocyte Esterase Negative RPR Titer Nonreactive Hepatitis C Antibody HIV 1&2 Antibody Screen HIV P24 Antigen LABS NOTED. Assessment: 12/11/16 11:34 WITHDRAWAL SYMPTOMS. Plan: CONTINUE DETOX. PATIENT REQUESTING LIST OF [facility] PROVIDERS FOR AFTER DISCHARGE FREOM DETOX. LIST OF PROVIDERS IN AREA SURROUNDING PATIENT'S HOME ([place], [place]) GIVEN TO PATIENT. ALSO ADVISED PATIENT TO SPEAK TO HIS BREAKFAST SERVER FOR POSSIBLE ADDITIONAL GUIDANCE ON THIS MATTER.
[2016-12-11] MEDS: diphenhydrAMINE HCL 50 MG CAPSULE PO PRN (22:04)
[2016-12-11] MEDS: THIAMINE HCL 100 MG TABLET (FP) PO SCH (22:04)
[2016-12-11] MEDS: LIDOCAINE PATCH REMOVAL MC SCH (22:21)
[2016-12-12] MEDS ORDERED: METHADONE HCL 5 MG TABLET (FOR DETOX USE ONLY) PO ONE (10:00)
[2016-12-12] MEDS: diazePAM 5 MG TABLET PO PRN (10:07)
[2016-12-12] MEDS: PRENATAL VITAMINS W/ FOLIC ACID TABLET (FP) PO SCH (10:07)
[2016-12-12] MEDS: LIDOCAINE 5% TOPICAL PATCH TP SCH (10:08)
[2016-12-12] MEDS: NICOTINE 14 MG/24 HOURS TOPICAL PATCH TD SCH (10:08)
[2016-12-12 10:26] VITALS: BP 137/90; PULSE 80; TEMP 97.8
--- NOTE | 2016-12-12 10:48 | PN ---
BHS Progress Note (SOAP) Subjective: Sweating, Tremors. Objective: PT. A & O X 3, OBSERVED AMBULATING ON UNIT. NO ACUTE DISTRESS. 12/12/16 10:46 Vital Signs Temperature 97.8 F 12/12/16 10:25 Pulse Rate 80 12/12/16 10:25 Respiratory Rate 16 12/12/16 10:25 Blood Pressure 137/90 12/12/16 10:25 O2 Sat by Pulse Oximetry (%) Laboratory Tests 12/09/16 12/09/16 12/09/16 11:50 12:35 13:20 WBC RBC Hgb Hct MCV MCH MCHC RDW Plt Count MPV Sickle Cell Screen Sodium 140 Potassium 3.7 Chloride 100 Carbon Dioxide 31 Anion Gap 9 BUN 16 Creatinine 1.2 D Creat Clearance w eGFR > 60 Random Glucose 85 Calcium 9.4 Total Bilirubin 1.7 H D AST 27 D ALT 28 D Alkaline Phosphatase 84 Total Protein 7.4 Albumin 4.2 D Urine Color Urine Appearance Urine pH Ur Specific [place] Urine Protein Urine Glucose (UA) Urine Ketones Urine Blood Urine Nitrite Urine Bilirubin Urine Urobilinogen Ur Leukocyte Esterase RPR Titer Hepatitis C Antibody <0.1 HIV 1&2 Antibody Screen Negative HIV P24 Antigen Negative 12/09/16 12/09/16 12/09/16 13:20 13:20 16:51 WBC 6.2 RBC 4.45 Hgb 14.2 Hct 42.1 MCV 94.6 MCH 31.9 MCHC 33.7 RDW 14.5 Plt Count 246 MPV 8.4 Sickle Cell Screen Negative Sodium Potassium Chloride Carbon Dioxide Anion Gap BUN Creatinine Creat Clearance w eGFR Random Glucose Calcium Total Bilirubin AST ALT Alkaline Phosphatase Total Protein Albumin Urine Color Yellow Urine Appearance Turbid Urine pH 5.0 D Ur Specific [place] >= 1.030 H Urine Protein Negative Urine Glucose (UA) Negative Urine Ketones Trace H Urine Blood Negative Urine Nitrite Negative Urine Bilirubin Negative Urine Urobilinogen Negative Ur Leukocyte Esterase Negative RPR Titer Nonreactive Hepatitis C Antibody HIV 1&2 Antibody Screen HIV P24 Antigen LABS NOTED. Assessment: 12/12/16 10:46 WITHDRAWAL SYMPTOMS. Plan: CONTINUE DETOX.
--- NOTE | 2016-12-12 12:59 | DS ---
[facility] Detox Discharge Summary Admission Date: 12/09/16 Discharge Date: 12/12/16 - History Present History: Cocaine Dependence, Opioid Dependence Additional Comments: PATIENT NON-COMPLIANT WITH UNIT RULES/REGULATIONS. PATIENT ALSO VERBALLY THREATENED STAFF, INCLUDING THREAT OF SHOOTING SECURITY STAFF. PATIENT DISCHARGED FROM UNIT. PATIENT IN STABLE CONDITION. PATIENT ESCORTED OFF UNIT BY SECURITY. Pertinent Past History: Multiple lumbar disc displacement. - Physical Exam Results Vital Signs: Vital Signs Temperature 97.8 F 12/12/16 10:25 Pulse Rate 80 12/12/16 10:25 Respiratory Rate 16 12/12/16 10:25 Blood Pressure 137/90 12/12/16 10:25 O2 Sat by Pulse Oximetry (%) Pertinent Admission Physical Exam Findings: WITHDRAWAL SYMPTOMS. Laboratory Tests 12/09/16 12/09/16 12/09/16 11:50 12:35 13:20 WBC RBC Hgb Hct MCV MCH MCHC RDW Plt Count MPV Sickle Cell Screen Sodium 140 Potassium 3.7 Chloride 100 Carbon Dioxide 31 Anion Gap 9 BUN 16 Creatinine 1.2 D Creat Clearance w eGFR > 60 Random Glucose 85 Calcium 9.4 Total Bilirubin 1.7 H D AST 27 D ALT 28 D Alkaline Phosphatase 84 Total Protein 7.4 Albumin 4.2 D Urine Color Urine Appearance Urine pH Ur Specific [place] Urine Protein Urine Glucose (UA) Urine Ketones Urine Blood Urine Nitrite Urine Bilirubin Urine Urobilinogen Ur Leukocyte Esterase RPR Titer Hepatitis C Antibody <0.1 HIV 1&2 Antibody Screen Negative HIV P24 Antigen Negative 12/09/16 12/09/16 12/09/16 13:20 13:20 16:51 WBC 6.2 RBC 4.45 Hgb 14.2 Hct 42.1 MCV 94.6 MCH 31.9 MCHC 33.7 RDW 14.5 Plt Count 246 MPV 8.4 Sickle Cell Screen Negative Sodium Potassium Chloride Carbon Dioxide Anion Gap BUN Creatinine Creat Clearance w eGFR Random Glucose Calcium Total Bilirubin AST ALT Alkaline Phosphatase Total Protein Albumin Urine Color Yellow Urine Appearance Turbid Urine pH 5.0 D Ur Specific [place] >= 1.030 H Urine Protein Negative Urine Glucose (UA) Negative Urine Ketones Trace H Urine Blood Negative Urine Nitrite Negative Urine Bilirubin Negative Urine Urobilinogen Negative Ur Leukocyte Esterase Negative RPR Titer Nonreactive Hepatitis C Antibody HIV 1&2 Antibody Screen HIV P24 Antigen LABS NOTED. - Treatment Hospital Course: Detoxed Safely - Medication Discharge Medications: Ambulatory Orders NK [No Known Home Medication] 07/07/16 - Diagnosis (1) Nicotine dependence Current Visit: Yes Status: Chronic Qualifiers: Nicotine product type: cigarettes Substance use status: uncomplicated Qualified Code(s): F17.210 - Nicotine dependence, cigarettes, uncomplicated (2) Opioid dependence with withdrawal Current Visit: Yes Status: Acute (3) Displacement of lumbar disc with radiculopathy Current Visit: Yes Status: Chronic (4) Cocaine dependence, uncomplicated Current Visit: Yes Status: Acute - AMA Did Patient Leave Against Medical Advice: No
[2016-12-13] MEDS ORDERED: METHADONE HCL 10 MG TABLET (FOR DETOX USE ONLY) PO ONE (10:00)
[2016-12-14] MEDS ORDERED: METHADONE HCL 5 MG TABLET (FOR DETOX USE ONLY) PO ONE (06:00)
== END 2016-12-12 11:20 | disposition home or self-care (01) | DRG 773 ==
LOC: YASAS 09:07 → Y3N 12:49
PROVIDERS: ADMIT Internal Medicine; ATTEND Internal Medicine
PROC: HZ2ZZZZ Detoxification Services for Substance Abuse Treatment (ICD-10-PCS; principal; 2016-12-12)
DX: F11.23 Opioid dependence with withdrawal (principal); F14.20 Cocaine dependence, uncomplicated; F17.210 Nicotine dependence, cigarettes, uncomplicated; M51.16 Intervertebral disc disorders with radiculopathy, lumbar region; F91.9 Conduct disorder, unspecified; Z91.19 Patient's noncompliance with other medical treatment and regimen
CPT/HCPCS: 36415; 80053; 81003; 85027; 85660; 86593; 86803; 87389; 93005; 93010

== ENCOUNTER 2019-07-22 15:10 | Emergency (ER) | payer OTHER ==
--- NOTE | 2019-07-22 15:34 | PDOC ---
Rapid Medical Evaluation Time Seen by Provider: 07/22/19 15:18 Medical Evaluation: Allergies Allergy/AdvReac Type Severity Reaction Status Date / Time No Known Allergies Allergy Verified 12/09/16 12:36 07/22/19 15:29 CC: right hand wound x "3 days"; PMHx- IN heroin PE: 2cm circular infected wound to dorsum of right 4th finger. Limited ROM 2/2 pain. Hand warm to touch. Cap refill <2 sec. Orders: labs, xray Patient will proceed to ED for evaluation. Discharge Disposition - Diagnosis Wound, open, finger - Referrals - Patient Instructions - Post Discharge Activity
[2019-07-22 15:36] VITALS: BP 113/80; PULSE 102; TEMP 98.3; BMI 24.2
[2019-07-22 15:58] LABS: EOS % 2.5 % (0-4.5); HEMOGLOBIN 13.8 GM/dL (11.7-16.9); LYMPH % 25.5 % (8-40); MCHC 34.4 g/dl (32.0-35.9); MEAN CELL VOLUME 96.1 fl (80-96); MEAN PLT VOLUME 6.9 fl (7.5-11.1); MONO % 6.3 % (3.8-10.2); NEUT % 64.7 % (42.8-82.8); PLATELET COUNT 402 K/MM3 (134-434); RBC 4.17 M/mm3 (4.00-5.60); RDW 13.5 % (11.9-15.9)
[2019-07-22 16:28] LABS: ALBUMIN 3.8 g/dl (3.4-5.0); BILIRUBIN,TOTAL 0.2 mg/dL (0.2-1); BLOOD UREA NITROGEN 14.2 mg/dL (7-18); CALCIUM 9.8 mg/dL (8.5-10.1); CREATININE 0.9 mg/dL (0.55-1.3); POTASSIUM 4.3 mmol/L (3.5-5.1); TOT PROT 7.2 g/dl (6.4-8.2)
[2019-07-22] MEDS ORDERED: CLINDAMYCIN HCL 300 MG CAPSULE PO ONE (16:36)
[2019-07-22] MEDS ORDERED: CLINDAMYCIN HCL 150 MG CAPSULE (FP) ONE (16:40)
--- NOTE | 2019-07-22 16:44 | PDOC ---
Attending Attestation - Resident Resident Name: Everett Vidal - ED Attending Attestation I have performed the following: I have examined & evaluated the patient, The case was reviewed & discussed with the resident, I agree w/resident's findings & plan, Exceptions are as noted - HPI HPI: 07/22/19 16:39 49 yo male h/o drug abuse, here with infection over his right handk top fourth finger. no f/c thought he may have had a bug bite 3 days ago. no f/c no other comlaints. - Physicial Exam PE: 07/22/19 16:40 awake alert lungs clear bilat heart rrr no mrg right hand dorsum fourth finger necrotic wound size quarter over MCP joint. surrounding erythema. swelling. anxious - Medical Decision Making 07/22/19 16:42 49 yo male h/o substance abuse here with necrotic wound hand likley from IVDA. pt had xray and labs ordered by RME. xray finger without osteomyelitis. labs normal pt refusing to stay for iv antiobiotics or oral antibiotocs refusing admission. unable to provide reason why. encouraged to return if gets worse. will send prescription for clindamycin [address] [facility] in [place].
--- NOTE | 2019-07-22 16:50 | PDOC ---
History of Present Illness - General Chief Complaint: Wound Stated Complaint: WOUND CARE Time Seen by Provider: 07/22/19 15:18 - History of Present Illness Initial Comments: 49M PMH IV Heroin use presents to ED for evaluation of dorsal finger wound. thinks he got bit 3 days ago by a bug during sleep and wound progressed. denies punching another person in the mouth with said hand or recent contact with any animals. denies f/c, cp/sob, n/v. endorses limited ROM of the right ring finger w/ only a little pain. states last heroin use was 1 month ago. states he does not want to stay in the hospital. 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 Past History - Past Medical History Allergies/Adverse Reactions: Allergies Allergy/AdvReac Type Severity Reaction Status Date / Time No Known Allergies Allergy Verified 07/25/19 17:39 Home Medications: Ambulatory Orders NK [No Known Home Medication] 07/26/19 Anemia: No Asthma: No Cancer: No Cardiac Disorders: No CVA: No COPD: No CHF: No Dementia: No Diabetes: No GI Disorders: No Disorders: No HTN: No Hypercholesterolemia: No Kidney Stones: No Liver Disease: No Seizures: No Thyroid Disease: No - Surgical History Abdominal Surgery: No Appendectomy: No Cardiac Surgery: No Cholecystectomy: No Lung Surgery: No Neurologic Surgery: No Orthopedic Surgery: No - Reproductive History Testicular Surgery: No - Psycho Social/Smoking Cessation Hx Smoking History: Current every day smoker Have you smoked in the past 12 months: Yes Number of Cigarettes Smoked Daily: 20 Cigars Per Day: 0 Information on smoking cessation initiated: No 'Breaking Loose' booklet given: 12/09/16 (GIVEN ON UNIT.) Hx Alcohol Use: Yes Drug/Substance Use Hx: Yes Substance Use Type: Cocaine, Heroin Hx Substance Use Treatment: Yes Review of Systems - Review of Systems Comments:: CONSTITUTIONAL: Denies F / C RESP: Denies SOB CARD: Denies chest pain, palpitations GI: Denies N / V / D, abdominal pain : Denies dysuria SKIN: Denies rashes NEURO: Denies numbness, tingling, weakness MSK: endorses dorsal finger ulcer *Physical Exam - Vital Signs Last Vital Signs Temp Pulse Resp BP Pulse Ox 98.3 F 102 H 18 113/80 100 07/22/19 15:29 07/22/19 15:29 07/22/19 15:29 07/22/19 15:29 07/22/19 15:29 - Physical Exam GEN: NAD, comfortable. AAOx3. HEENT: NC/AT. No facial asymmetry. Normal voice. Supple neck w/ FROM. CV: S1/S2, RRR, no m/r/g LUNG: CTAB, no wheezes, crackles, rales, rhonchi. GI: Soft, ndnt, +BS, no guarding, no rebound. No masses. MSK: necrotic purulent wound approx 2x2cm on the dorsal right ring finger. limited ROM; decreased sensation of that finger. erythema proximal and distal of the wound edges; approx 1cm in each direction. No wrist or elbow TTP. FROM of the wrist and elbow. FROM of rest of fingers on right hand. SKIN: Warm, dry, no rashes appreciated. PSYCH: Normal mood and affect. NEURO: Moving all extremities well. ambulates w/ normal gait. ED Treatment Course - LABORATORY CBC & Chemistry Diagram: 07/22/19 15:45 07/22/19 15:45 - ADDITIONAL ORDERS Additional order review: Laboratory Results 07/22/19 15:45 Sodium 139 Potassium 4.3 Chloride 102 Carbon Dioxide 32 Anion Gap 4 L BUN 14.2 Creatinine 0.9 Est GFR (CKD-EPI)AfAm 116.65 Est GFR (CKD-EPI)NonAf 100.64 Random Glucose 126 H Calcium 9.8 Total Bilirubin 0.2 AST 12 L ALT 30 Alkaline Phosphatase 93 Total Protein 7.2 Albumin 3.8 07/22/19 15:45 RBC 4.17 MCV 96.1 H MCHC 34.4 RDW 13.5 MPV 6.9 L D Neutrophils % 64.7 Lymphocytes % 25.5 Monocytes % 6.3 Eosinophils % 2.5 Basophils % 1.0 Medical Decision Making - Medical Decision Making 07/22/19 16:43 49M PMH IV Heroin use presents to ED for evaluation of dorsal finger wound - RME labs ordered and XR - Patient informed about seriousness of his wound and that he would need IV abx and admission. patient refusing to stay for any treatment or further evaluation ; expressed understanding of risks of leaving; dressed and prepared to leave - states he was getting nervous and tremulous; ED team offered treatment of his symptoms but he declined. Pt signed AMA form but did not stay for discharge information. Patient is determined to be of sound mind and reasoning. The patient fully understands the care they are refusing and the risks associated with leaving before complete medical evaluation as explained by the medical team. The patient has been provided with a discharge summary, return precautions, and the reassurance that the Emergency Department will resume workup if the patient changes their mind. Immediate primary care follow up has been urged. Sending abx to his pharmacy. Discharge - Discharge Information Problems reviewed: Yes Clinical Impression/Diagnosis: Wound, open, finger Condition: Guarded Disposition: AGAINST MEDICAL ADVICE - Follow up/Referral - Patient Discharge Instructions Patient Printed Discharge Instructions: Cellulitis Additional Instructions: entiendo que te vas en contra del consejo mdico Debe barrie clindamicina 300 mg sean veces al da x 7 le - Post Discharge Activity
== END 2019-07-22 16:44 | disposition left against medical advice (07) ==
LOC: JER 15:10
DX: S61.204A Unspecified open wound of right ring finger without damage to nail, initial encounter (principal); X58.XXXA Exposure to other specified factors, initial encounter; Y93.89 Activity, other specified; Y92.89 Other specified places as the place of occurrence of the external cause; Y99.8 Other external cause status; F11.10 Opioid abuse, uncomplicated; F17.210 Nicotine dependence, cigarettes, uncomplicated
CPT/HCPCS: 36415; 73130-TC-RT-FY; 80053; 85025; 87040; 99283-25

== ENCOUNTER 2019-07-25 17:06 | Inpatient (IN) | payer SELFPAY ==
[2019-07-25 17:39] VITALS: BMI 25.7
--- NOTE | 2019-07-25 17:40 | PDOC ---
Rapid Medical Evaluation Medical Evaluation: Allergies Allergy/AdvReac Type Severity Reaction Status Date / Time No Known Allergies Allergy Verified 07/22/19 15:34 I have performed a brief in-person evaluation of this patient. The patient presents with a chief complaint of: presents for R 4th finger infection; was here 3 days ago for similar complaints, was told needed admission but signed out AMA Pertinent physical exam findings: R 4th finger swollen and red, open wound along dorsal surface, no drainage I have ordered the following: Labs, xray The patient will proceed to the ED for further evaluation. 07/25/19 17:38
[2019-07-25] MEDS ORDERED: PIPERACILLIN/TAZOBACTAM 4.5 GM VIAL IVPB ONE (19:33)
[2019-07-25] MEDS ORDERED: VANCOMYCIN 1 GM in D5W (PRE-DOCKED) 1,000 MG/250 ML IVPB ONE (19:34)
--- NOTE | 2019-07-25 19:37 | PDOC ---
History of Present Illness - General Chief Complaint: Wound Stated Complaint: FINGER INFECTION Time Seen by Provider: 07/25/19 17:38 History Source: Patient - History of Present Illness Initial Comments: 07/25/19 22:15 49-year-old male seen in this ER 3 days ago with right 4th finger necrotic wound with surrounding erythema and redness extending to 3rd and 5th digit. dPatient was seen in this ER on 07/22/2019. Patient was advised to be admitted patient at the time signed out AMA. Reports that he never picked up his antibioticsReturns with increased pain and swelling. denies fever/ chills. History of drug abuse ( snorts heroin) Past History - Past Medical History Allergies/Adverse Reactions: Allergies Allergy/AdvReac Type Severity Reaction Status Date / Time No Known Allergies Allergy Verified 07/25/19 17:39 Home Medications: Ambulatory Orders NK [No Known Home Medication] 07/26/19 Anemia: No Asthma: No Cancer: No Cardiac Disorders: No CVA: No COPD: No CHF: No Dementia: No Diabetes: No GI Disorders: No Disorders: No HTN: No Hypercholesterolemia: No Kidney Stones: No Liver Disease: No Seizures: No Thyroid Disease: No - Surgical History Abdominal Surgery: No Appendectomy: No Cardiac Surgery: No Cholecystectomy: No Lung Surgery: No Neurologic Surgery: No Orthopedic Surgery: No - Reproductive History Testicular Surgery: No - Psycho Social/Smoking Cessation Hx Smoking History: Never smoked Have you smoked in the past 12 months: Yes Number of Cigarettes Smoked Daily: 10 Cigars Per Day: 0 'Breaking Loose' booklet given: 12/09/16 (GIVEN ON UNIT.) Hx Alcohol Use: No Drug/Substance Use Hx: Yes (HEROIN) Substance Use Type: Cocaine, Heroin Hx Substance Use Treatment: Yes Review of Systems - Review of Systems Able to Perform ROS?: Yes Is the patient limited Hebrew proficient: No Integumentary: Yes: Erythema (wound to finger) *Physical Exam - Vital Signs Last Vital Signs Temp Pulse Resp BP Pulse Ox 98.2 F 91 H 18 130/79 98 07/25/19 17:37 07/25/19 17:37 07/25/19 17:37 07/25/19 17:37 07/25/19 17:37 - Physical Exam General Appearance: Yes: Appropriately Dressed Integumentary: positive: Dry, Warm, Erythema (Erythema extending to third and fifth digit. Necrotic wound with surrounding erythema and swelling to fourth digit) Neurologic: positive: Fully Oriented, Alert ED Treatment Course - LABORATORY CBC & Chemistry Diagram: 07/25/19 19:31 07/25/19 19:31 ED Progress Note - Progress Note Progress Note: 07/26/19 03:39 A: finger cellulitis P: cbc cmp blood culture IV antibiotics Discharge - Discharge Information Problems reviewed: Yes Clinical Impression/Diagnosis: Necrosis of finger, Finger infection, Heroin use - Admission Yes - Follow up/Referral - Patient Discharge Instructions - Post Discharge Activity
[2019-07-25] MEDS ORDERED: PIPERACILLIN/TAZOB 4.5 GM 4.5 GM/100 ML BAG IVPB ONE (20:08)
[2019-07-25] MEDS ORDERED: VANCOMYCIN 1 GRAM (PRE-DOCKED) 1,000 MG/250 ML BAG IVPB ONE (20:08)
[2019-07-25 21:54] LABS: BASO % 0.6 % (0-2.0); EOS % 2.9 % (0-4.5); HEMATOCRIT 39.1 % (35.4-49); HEMOGLOBIN 13.2 GM/dL (11.7-16.9); MCH 32.7 pg (25.7-33.7); MCHC 33.8 g/dl (32.0-35.9); MEAN CELL VOLUME 96.7 fl (80-96); MEAN PLT VOLUME 7.4 fl (7.5-11.1); MONO % 6.8 % (3.8-10.2); NEUT % 57.7 % (42.8-82.8); PLATELET COUNT 345 K/MM3 (134-434); RBC 4.05 M/mm3 (4.00-5.60); RDW 13.6 % (11.9-15.9); WHITE BLOOD COUNT 7.9 K/mm3 (4.0-10.0)
--- NOTE | 2019-07-25 21:55 | HP ---
Admitting History and Physical - Primary Care Physician PCP: Carrie Watkins - Admission Chief Complaint: R ring finger cellulitis - Smoking History Smoking history: Never smoked Have you smoked in the past 12 months: Yes Aproximately how many cigarettes per day: 10 - Alcohol/Substance Use Hx Alcohol Use: No Home Medications - Allergies Allergies/Adverse Reactions: Allergies Allergy/AdvReac Type Severity Reaction Status Date / Time No Known Allergies Allergy Verified 07/25/19 17:39 - Home Medications Home Medications: Ambulatory Orders NK [No Known Home Medication] 07/26/19 Physical Examination Vital Signs: Vital Signs Temperature 98.2 F 07/25/19 17:37 Pulse Rate 91 H 07/25/19 17:37 Respiratory Rate 18 07/25/19 17:37 Blood Pressure 130/79 07/25/19 17:37 O2 Sat by Pulse Oximetry (%) 98 07/25/19 17:37 Constitutional: Yes: No Distress HENT: Yes: Atraumatic Neck: Yes: Supple Cardiovascular: Yes: Regular Rate and Rhythm Respiratory: Yes: CTA Bilaterally Gastrointestinal: Yes: Normal Bowel Sounds Extremities: Yes: Other (R ring finger celulitis) Neurological: Yes: Alert, Oriented Imaging - Results X-ray: Report Reviewed Problem List - Problems (1) Cocaine dependence, uncomplicated Assessment/Plan: detox consult Code(s): F14.20 - COCAINE DEPENDENCE, UNCOMPLICATED (2) Opioid dependence with withdrawal Code(s): F11.23 - OPIOID DEPENDENCE WITH WITHDRAWAL (3) Wound, open, finger Code(s): S61.209A - UNSP OPEN WOUND OF UNSP FINGER W/O DAMAGE TO NAIL, INIT (4) Nicotine dependence Code(s): F17.200 - NICOTINE DEPENDENCE, UNSPECIFIED, UNCOMPLICATED Qualifiers:
[2019-07-25] MEDS ORDERED: ACETAMINOPHEN 325 MG TABLET (FP) PO PRN (21:57)
[2019-07-25 22:22] LABS: ALBUMIN 3.3 g/dl (3.4-5.0); BILIRUBIN,TOTAL 0.2 mg/dL (0.2-1); BLOOD UREA NITROGEN 18.5 mg/dL (7-18); CREATININE 0.9 mg/dL (0.55-1.3); TOT PROT 6.4 g/dl (6.4-8.2)
[2019-07-25] MEDS: HEPARIN NA (PORCINE) 5,000 UNITS/ML 1ML VIAL SQ SCH (22:37)
[2019-07-26] MEDS: HEPARIN NA (PORCINE) 5,000 UNITS/ML 1ML VIAL SQ SCH (09:28)
[2019-07-26 10:54] VITALS: BP 109/74; PULSE 86; TEMP 98.1
--- NOTE | 2019-07-26 14:04 | CON.ID ---
Consult - Alcohol/Substance Use Hx Alcohol Use: No - Smoking History Smoking history: Never smoked Have you smoked in the past 12 months: Yes Aproximately how many cigarettes per day: 10 Home Medications - Allergies Allergies/Adverse Reactions: Allergies Allergy/AdvReac Type Severity Reaction Status Date / Time No Known Allergies Allergy Verified 07/25/19 17:39 - Home Medications Home Medications: Ambulatory Orders NK [No Known Home Medication] 07/26/19 Physical Exam Vital Signs: Vital Signs Temperature 98.1 F 07/26/19 10:00 Pulse Rate 86 07/26/19 10:00 Respiratory Rate 20 07/26/19 10:00 Blood Pressure 109/74 07/26/19 10:00 O2 Sat by Pulse Oximetry (%) 100 07/26/19 09:00 Labs: CBC, BMP 07/25/19 19:31 07/25/19 19:31
--- NOTE | 2019-07-26 14:48 | PN ---
Progress Note (short form) - Note Progress Note: Attempted to see patient, however pt was escorted out of hospital and is no longer here.
--- NOTE | 2019-07-26 16:52 | DS ---
Physical Examination Vital Signs: Vital Signs Temperature 98.1 F 07/26/19 10:00 Pulse Rate 86 07/26/19 10:00 Respiratory Rate 20 07/26/19 10:00 Blood Pressure 109/74 07/26/19 10:00 O2 Sat by Pulse Oximetry (%) 100 07/26/19 09:00 Labs: CBC, BMP 07/25/19 19:31 07/25/19 19:31 Discharge Summary Problems reviewed: Yes Reason For Visit: OPEN WOUND OF FINGER,CELLULITIS OF FINGER OF RIGHT Condition: Unchanged/Unknown - Instructions Disposition: AGAINST MEDICAL ADVICE - Home Medications Comprehensive Discharge Medication List: Ambulatory Orders NK [No Known Home Medication] 07/26/19
== END 2019-07-26 14:43 | disposition left against medical advice (07) | DRG 383 ==
LOC: JER 17:06 → JERBED 21:45
PROVIDERS: ADMIT Internal Medicine; ATTEND Internal Medicine
DX: L03.011 Cellulitis of right finger (principal); F14.20 Cocaine dependence, uncomplicated; F11.20 Opioid dependence, uncomplicated; F17.210 Nicotine dependence, cigarettes, uncomplicated
CPT/HCPCS: 36415; 73130-TC-RT-FY; 80053; 85025; 87040; 99285-25; J1644